=== PATIENT | male | born 1950 | race Caucasian/White ===

== ENCOUNTER 2016-06-25 16:22 | Emergency (ER) | payer BC ==
--- NOTE | 2016-06-25 17:05 | ED ---
General Adult HPI - General Chief complaint: Chest Pain Stated complaint: Chest Pain/SOB Time Seen by Provider: 06/25/16 16:35 Source: patient, RN notes reviewed Mode of arrival: wheelchair Limitations: no limitations - History of Present Illness Initial comments: This is a 66-year-old male who presents emergency Department complaining that over the last couple of months she's had episodes of shortness of breath and a weird sensation in his chest. Patient states she's also looked at his apple watch which takes his pulse during some of these episodes and his heart rate is gone up anywhere between 120 and 165 on multiple occasions. Patient states currently he is having symptoms. Patient states yesterday when he started to exercise at first he was very short of breath and all of a sudden when he kept going the shortness of breath resolved and he felt back to his baseline. Patient denies any recent fevers chills or cough. Patient denies any headache patient denies numbness weakness. Patient denies any lightheadedness dizziness or near syncopal episode. Patient denies abdominal pain patient denies nausea vomiting or diarrhea. - Related Data Home Medications Medication Instructions Recorded Confirmed Ranitidine HCl [Zantac] 150 mg PO QAM 03/02/14 06/25/16 Aspirin EC [Ecotrin] 81 mg PO QAM 06/25/16 06/25/16 Multivitamins, Thera [Multivitamin] 1 tab PO DAILY 06/25/16 06/25/16 Tamsulosin HCl [Flomax] 0.4 mg PO HS 06/25/16 06/25/16 Warfarin [Coumadin] 5 mg PO MOTU 06/25/16 06/25/16 Warfarin [Coumadin] 7.5 mg PO SUWETHFRSA 06/25/16 06/25/16 Allergies Allergy/AdvReac Type Severity Reaction Status Date / Time No Known Allergies Allergy Verified 06/25/16 16:58 Review of Systems ROS Statement: Those systems with pertinent positive or pertinent negative responses have been documented in the HPI. ROS Other: All systems not noted in ROS Statement are negative. Past Medical History Past Medical History: Deep Vein Thrombosis (DVT), Pulmonary Embolus (PE) Additional Past Medical History / Comment(s): seasonal ALLERGIES History of Any Multi-Drug Resistant Organisms: None Reported Additional Past Surgical History / Comment(s): CYSTS REMOVED FROM NECK Past Psychological History: No Psychological Hx Reported Smoking Status: Former smoker Past Alcohol Use History: None Reported Past Drug Use History: None Reported General Exam - General Exam Comments Initial Comments: GENERAL: Patient is well-developed and well-nourished. Patient is nontoxic and well- hydrated and is in no acute distress. ENT: Neck is soft and supple. No significant lymphadenopathy is noted. Oropharynx is clear. Moist mucous membranes. Neck has full range of motion without eliciting any pain. EYES: The sclera were anicteric and conjunctiva were pink and moist. Extraocular movements were intact and pupils were equal round and reactive to light. Eyelids were unremarkable. PULMONARY: Unlabored respirations. Good breath sounds bilaterally. No audible rales rhonchi or wheezing was noted. CARDIOVASCULAR: There is a regular rate and rhythm without any murmurs gallops or rubs. Femoral pulses are equal bilaterally ABDOMEN: Soft and nontender with normal bowel sounds. No palpable organomegaly was noted. There is no palpable pulsatile mass. SKIN: Skin is clear with no lesions or rashes and otherwise unremarkable. NEUROLOGIC: Patient is alert and oriented x3. Cranial nerves II through XII are grossly intact. Motor and sensory are also intact. Normal speech, volume and content. Symmetrical smile. MUSCULOSKELETAL: Normal extremities with adequate strength and full range of motion. No lower extremity swelling or edema. No calf tenderness. LYMPHATICS: No significant lymphadenopathy is noted PSYCHIATRIC: Normal psychiatric evaluation. Normal interpersonal interactions appears functionally intact in deals appropriately with others. No signs of depression. No signs of anxiety. Limitations: no limitations Course Vital Signs 06/25/16 06/25/16 16:32 18:07 Temperature 97.7 F Pulse Rate 61 54 L Respiratory 18 17 Rate Blood Pressure 114/62 100/60 O2 Sat by Pulse 98 99 Oximetry Medical Decision Making - Medical Decision Making EKG shows sinus bradycardia 56 bpm [place] interval is 170 QRS is 86 QT interval 432 QTC is 416 per patient's EKG shows no ST segment elevation or depression or T- wave abdomen is noted. Chest x-ray showed no acute abnormality. I discussed the results of his tests with the patient and because he had multiple episodes of racing heart rate when he was having the shortness of breath and weird feeling in his chest I believed to be some sort of tachyarrhythmia and felt as though he could follow-up as an outpatient. Patient was very comfortable with this and wanted to go home and stated he would follow-up Dr. Hinojosa for stress test and a Holter or event monitor - Lab Data Result diagrams: 06/25/16 16:45 06/25/16 16:45 Lab Results 06/25/16 06/25/16 06/25/16 Range/Units 16:45 16:45 16:45 WBC 4.7 (3.8-10.6) k/uL RBC 4.52 (4.30-5.90) m/uL Hgb 14.5 (13.0-17.5) gm/dL Hct 43.8 (39.0-53.0) % MCV 96.7 (80.0-100.0) fL MCH 32.1 (25.0-35.0) pg MCHC 33.2 (31.0-37.0) g/dL RDW 13.0 (11.5-15.5) % Plt Count 177 (150-450) k/uL Neutrophils % 49 % Lymphocytes % 33 % Monocytes % 9 % Eosinophils % 4 % Basophils % 1 % Neutrophils # 2.3 (1.3-7.7) k/uL Lymphocytes # 1.6 (1.0-4.8) k/uL Monocytes # 0.4 (0-1.0) k/uL Eosinophils # 0.2 (0-0.7) k/uL Basophils # 0.0 (0-0.2) k/uL PT (9.0-12.0) sec INR (<1.1) APTT (22.0-30.0) sec Sodium 141 (137-145) mmol/L Potassium 4.5 (3.5-5.1) mmol/L Chloride 104 (98-107) mmol/L Carbon Dioxide 29 (22-30) mmol/L Anion Gap 8 mmol/L BUN 22 H (9-20) mg/dL Creatinine 0.94 (0.66-1.25) mg/dL Est GFR (MDRD) Af Amer >60 (>60 ml/min/1.73 sqM) Est GFR (MDRD) Non-Af >60 (>60 ml/min/1.73 sqM) Glucose 85 (74-99) mg/dL Calcium 9.1 (8.4-10.2) mg/dL Magnesium 1.9 (1.6-2.3) mg/dL Total Bilirubin 0.7 (0.2-1.3) mg/dL AST 43 (17-59) U/L ALT 52 (21-72) U/L Alkaline Phosphatase 58 (38-126) U/L Total Creatine Kinase 550 H (55-170) U/L CK-MB (CK-2) 8.5 H* (0.0-2.4) ng/mL CK-MB (CK-2) Rel Index 1.5 Troponin I <0.012 (0.000-0.034) ng/mL Total Protein 6.8 (6.3-8.2) g/dL Albumin 4.1 (3.5-5.0) g/dL 06/25/16 Range/Units 16:45 WBC (3.8-10.6) k/uL RBC (4.30-5.90) m/uL Hgb (13.0-17.5) gm/dL Hct (39.0-53.0) % MCV (80.0-100.0) fL MCH (25.0-35.0) pg MCHC (31.0-37.0) g/dL RDW (11.5-15.5) % Plt Count (150-450) k/uL Neutrophils % % Lymphocytes % % Monocytes % % Eosinophils % % Basophils % % Neutrophils # (1.3-7.7) k/uL Lymphocytes # (1.0-4.8) k/uL Monocytes # (0-1.0) k/uL Eosinophils # (0-0.7) k/uL Basophils # (0-0.2) k/uL PT 20.3 H (9.0-12.0) sec INR 2.1 (<1.1) APTT 28.0 (22.0-30.0) sec Sodium (137-145) mmol/L Potassium (3.5-5.1) mmol/L Chloride (98-107) mmol/L Carbon Dioxide (22-30) mmol/L Anion Gap mmol/L BUN (9-20) mg/dL Creatinine (0.66-1.25) mg/dL Est GFR (MDRD) Af Amer (>60 ml/min/1.73 sqM) Est GFR (MDRD) Non-Af (>60 ml/min/1.73 sqM) Glucose (74-99) mg/dL Calcium (8.4-10.2) mg/dL Magnesium (1.6-2.3) mg/dL Total Bilirubin (0.2-1.3) mg/dL AST (17-59) U/L ALT (21-72) U/L Alkaline Phosphatase (38-126) U/L Total Creatine Kinase (55-170) U/L CK-MB (CK-2) (0.0-2.4) ng/mL CK-MB (CK-2) Rel Index Troponin I (0.000-0.034) ng/mL Total Protein (6.3-8.2) g/dL Albumin (3.5-5.0) g/dL Disposition Clinical Impression: Tachyarrhythmia Disposition: HOME SELF-CARE Condition: Good Instructions: Tachycardia (ED) Additional Instructions: Patient should follow-up with his PMD for a Holter or event monitor. Patient should not participate any strenuous activities until that time. Patient should return if there is any worsening or new symptoms. Referrals: Manoj Hinojosa DO [Primary Care Provider] - 1-2 days Time of Disposition: 18:02
[2016-06-25 17:09] LABS: Basophils % (A) 1 %; CH 32.1; CHCM 33.4; Eosinophils # (A) 0.2 k/uL (0-0.7); Eosinophils % (A) 4 %; HCT 43.8 % (39.0-53.0); HDW 2.26; HGB 14.5 gm/dL (13.0-17.5); Luc # (Auto) 0.19; Luc % (Auto) 4; Lymphocytes # (A) 1.6 k/uL (1.0-4.8); Lymphocytes % (A) 33 %; MCH 32.1 pg (25.0-35.0); MCHC 33.2 g/dL (31.0-37.0); MCV 96.7 fL (80.0-100.0); Mean Platelet Volume 7.7; Monocytes # (A) 0.4 k/uL (0-1.0); Monocytes % (A) 9 %; Neutrophils # (A) 2.3 k/uL (1.3-7.7); Neutrophils % (A) 49 %; RBC 4.52 m/uL (4.30-5.90); WBC 4.7 k/uL (3.8-10.6); WBC (Perox) 4.67
[2016-06-25 17:19] LABS: INR 2.1 (<1.1); Prothrombin Time 20.3 sec (9.0-12.0)
[2016-06-25 17:20] LABS: ALT 52 U/L (21-72); AST 43 U/L (17-59); Alkaline Phosphatase 58 U/L (38-126); Anion Gap 8 mmol/L; Blood Urea Nitrogen 22 mg/dL (9-20); Calcium 9.1 mg/dL (8.4-10.2); Carbon Dioxide 29 mmol/L (22-30); Chloride 104 mmol/L (98-107); Glucose 85 mg/dL (74-99); Magnesium 1.9 mg/dL (1.6-2.3); Non-African American GFR(MDRD) >60 (>60 ml/min/1.73 sqM); Potassium 4.5 mmol/L (3.5-5.1); Sodium 141 mmol/L (137-145); Total Bilirubin 0.7 mg/dL (0.2-1.3); Total Protein 6.8 g/dL (6.3-8.2)
[2016-06-25 17:42] LABS: Creatine Kinase 550 U/L (55-170)
[2016-06-25 17:55] LABS: Troponin I <0.012 ng/mL (0.000-0.034)
[2016-06-25 17:59] LABS: Creatine Kinase MB 8.5 ng/mL (0.0-2.4)
--- NOTE | 2016-06-25 18:03 | XR ---
EXAMINATION TYPE: XR chest 2V DATE OF EXAM: 06/25/2016 5:19 PM COMPARISON: March 18, 2011 chest radiograph HISTORY: Chest pain with dyspnea TECHNIQUE: Frontal and lateral views of the chest are obtained. FINDINGS: Cardiac silhouette is normal. Mediastinal silhouette and bones and soft tissues are negative. The lungs appear clear bilaterally given the relatively underpenetrated technique of this radiographi c series when compared to the prior radiographs. The pleural spaces are negative. No abnormal gas or fluid collections. IMPRESSION: NO ACUTE PROCESS.
[2016-06-25 18:09] VITALS: BP 100/60; PULSE 54; RESP 17
[2016-06-25 18:20] VITALS: TEMP 97.8
== END 2016-06-25 18:25 | disposition home or self-care (01) ==
LOC: EC 16:22
DX: R00.0 Tachycardia, unspecified (principal); R07.9 Chest pain, unspecified; R06.02 Shortness of breath; Z86.718 Personal history of other venous thrombosis and embolism; Z87.891 Personal history of nicotine dependence; Z79.82 Long term (current) use of aspirin; Z79.899 Other long term (current) drug therapy; Z79.01 Long term (current) use of anticoagulants
CPT/HCPCS: 36415; 71020; 80053; 82550; 82553; 83735; 84484; 85025; 85610; 85730; 93005; 99285

== ENCOUNTER → 2016-07-16 | Outpatient (CLI) | payer BC ==
--- NOTE | 2016-07-16 15:43 | US ---
EXAMINATION TYPE: US carotid duplex BILAT DATE OF EXAM: 07/16/2016 3:27 PM COMPARISON: Prior carotid ultrasound December 10, 2010 CLINICAL HISTORY: Syncope R55. Racing heart 1 day fit band said 120 heart rate pt felt faint at that time prior was only positional of feeling faint EXAM MEASUREMENTS: RIGHT: Peak Systolic Velocity (PSV) cm/sec ----- Right CCA: 143.8 ----- Right ICA: 77.9 ----- Right ECA: 69.8 ICA/CCA ratio: 1.0 RIGHT: End Diastole cm/sec ----- Right CCA: 30.8 ----- Right ICA: 31.7 ----- Right ECA: 5.6 LEFT: Peak Systolic Velocity (PSV) cm/sec ----- Left CCA: 106.1 ----- Left ICA: 87.2 ----- Left ECA: 79.8 ICA/CCA ratio: 1.0 LEFT: End Diastole cm/sec ----- Left CCA: 30.1 ----- Left ICA: 29.5 ----- Left ECA: 12.4 VERTEBRALS (direction of flow): Right Vertebral: Antegrade Left Vertebral: Antegrade TECHNOLOGIST IMPRESSION: No elevated velocities, irregular heart beat No significant focal plaque is seen in the carotid bulb level bilaterally. Velocity measurements and ratios in visualized portion of both internal carotid arteries is within normal limits. IMPRESSION: No hemodynamic significant stenosis is seen in either internal carotid artery. Note is m jeanna of cardiac arrhythmia noted during real-time scanning. Consider further workup based on clinical correlation.
== END | disposition home or self-care (01) ==
LOC: RADUSWWP 14:48
PROVIDERS: ATTEND Family Medicine
DX: I49.9 Cardiac arrhythmia, unspecified (principal); R55 Syncope and collapse
CPT/HCPCS: 93880

== ENCOUNTER → 2016-08-28 | Outpatient (CLI) | payer BC | END | disposition home or self-care (01) | LOC: LABWHC1 12:48 | PROVIDERS: ATTEND Internal Medicine Clinical Cardiac Electrophysiology | DX: I47.1 Supraventricular tachycardia (principal); R42 Dizziness and giddiness | CPT/HCPCS: 36415; 84439; 84443 ==

== ENCOUNTER 2018-02-04 11:58 | Emergency (ER) | payer BC ==
[2018-02-04] MEDS ORDERED: SODIUM CHLORIDE 0.9% 1,000 ML IV STA (12:39)
[2018-02-04] MEDS ORDERED: MECLIZINE 12.5 MG TAB PO STA (12:41)
--- NOTE | 2018-02-04 12:45 | ED ---
General Adult HPI - General Chief complaint: Dizziness Stated complaint: Vertigo Time Seen by Provider: 02/04/18 12:17 Source: patient, RN notes reviewed Mode of arrival: EMS Limitations: no limitations - History of Present Illness Initial comments: 67-year-old male with history of DVT/PE currently on Coumadin presents to the emergency department for a chief complaint of dizziness 3 hours. Patient states he was in the shower this morning around 9 AM when he hit his left ear on something. Patient states that since then he has had increasing dizziness. He denies tinnitus, decreased hearing, or pain in the ear at this time. Patient states the room is spinning around him and he also feels somewhat lightheaded. Patient states he was very diaphoretic and felt very warm. Patient denies vomiting but does state he is nauseous. Patient denies any weakness. Patient states that at that time he felt a sharp pain in his left ear. Patient states that he was driving here when he had to go to the bathroom and states he "stumbled" to the restroom and then called an ambulance to take him here. Patient denies any headache. Patient has no other complaints at this time including shortness of breath, chest pain, abdominal pain, nausea or vomiting, headache, or visual changes. - Related Data Home Medications Medication Instructions Recorded Confirmed Aspirin EC [Ecotrin] 81 mg PO HS 06/25/16 02/04/18 Multivitamins, Thera [Multivitamin] 1 tab PO DAILY 06/25/16 02/04/18 Warfarin [Coumadin] 5 mg PO MOTUWE 06/25/16 02/04/18 Warfarin [Coumadin] 7.5 mg PO SUTHFRSA 06/25/16 02/04/18 Cholecalciferol [Vitamin D3] 1,000 unit PO DAILY 02/04/18 02/04/18 Montelukast [Singulair] 10 mg PO DAILY 02/04/18 02/04/18 [place]-3 Fatty Acids/Fish Oil [Fish 1 cap PO DAILY 02/04/18 02/04/18 Oil 1,000 mg Softgel] Ubidecarenone [Co Q-10] 100 mg PO DAILY 02/04/18 02/04/18 Previous Rx's Medication Instructions Recorded Amoxicillin/Potassium Clav 1 tab PO Q12HR #20 tab 02/04/18 [Augmentin 875-125 Tablet] Meclizine [Antivert] 25 mg PO TID PRN #30 tab 02/04/18 Allergies Allergy/AdvReac Type Severity Reaction Status Date / Time No Known Allergies Allergy Verified 02/04/18 12:38 Review of Systems ROS Statement: Those systems with pertinent positive or pertinent negative responses have been documented in the HPI. ROS Other: All systems not noted in ROS Statement are negative. Past Medical History Past Medical History: Deep Vein Thrombosis (DVT), Pulmonary Embolus (PE) Additional Past Medical History / Comment(s): seasonal ALLERGIES History of Any Multi-Drug Resistant Organisms: None Reported Additional Past Surgical History / Comment(s): CYSTS REMOVED FROM NECK Past Psychological History: No Psychological Hx Reported Smoking Status: Former smoker Past Alcohol Use History: None Reported Past Drug Use History: None Reported General Exam Limitations: no limitations General appearance: alert, in no apparent distress (Patient laying in bed, alert and well-appearing, nondiaphoretic at this time) Head exam: Present: atraumatic, normocephalic, normal inspection Eye exam: Present: normal appearance, PERRL, EOMI, nystagmus (Fatigable horizontal nystagmus to the left). Absent: scleral icterus, conjunctival injection, periorbital swelling ENT exam: Present: normal exam, normal oropharynx, mucous membranes moist, TM's normal bilaterally (non buldging, non erythematous), normal external ear exam Neck exam: Present: normal inspection, full ROM. Absent: tenderness, meningismus, lymphadenopathy Respiratory exam: Present: normal lung sounds bilaterally. Absent: respiratory distress, wheezes, rales, rhonchi, stridor Cardiovascular Exam: Present: regular rate, normal rhythm, normal heart sounds. Absent: systolic murmur, diastolic murmur, rubs, gallop, clicks GI/Abdominal exam: Present: soft, normal bowel sounds. Absent: distended, tenderness, guarding, rebound, rigid Extremities exam: Present: full ROM (moving all extremities) Neurological exam: Present: alert, oriented X3, CN II-XII intact Expanded Patient oriented to: Present: person, place, time Speech: Present: fluid speech Cranial nerves: EOM's Intact: Normal, Tongue Deviation: Normal, Nystagmus: Normal, Facial Sensation: Normal Motor strength exam: RUE: 5, LUE: 5 Psychiatric exam: Present: normal affect, normal mood Course Vital Signs 02/04/18 02/04/18 12:01 14:36 Temperature 97.5 F L Pulse Rate 65 68 Respiratory 22 18 Rate Blood Pressure 128/59 111/69 O2 Sat by Pulse 95 98 Oximetry EKG Findings - EKG Comments: EKG Findings:: Sinus bradycardia, ventricular rate 55, OK interval 194, QRS duration 1:30, right bundle branch, no evidence of ST elevation or depression Medical Decision Making - Medical Decision Making 67-year-old male presents to the emergency department for a chief complaint of dizziness after hitting left ear in the shower. Patient is on Coumadin due to history of DVTs. On exam no focal neuro deficits. GCS 15 Patient is alert and oriented. Positive [place]-Hallpike maneuver on exam. CBC and CMP unremarkable. Troponin less than 0.012. Total creatine kinase 620 and CK-MB 10.8. CK-MB index 1.7 which demonstrates it's not likely to be a cardiac cause. Patient will follow up for these laboratory abnormalities and have repeat labs drawn with primary. CT of the brain was negative for intracranial hemorrhage. However patient does have acute left maxillary sinusitis. Patient was given Antivert in the emergency department which helped to improve his symptoms significantly. Discussed with patient that this could be related to sinusitis as well as to vertigo. Patient does admit to a history of vertigo. I did prescribe the patient Antivert as well as Augmentin. Discussed taking the Augmentin if symptoms worsen or patient develops fevers or chills or facial pressure. Discussed using a Flonase and Claritin [id number] as well for sinusitis as that could be causing symptoms of dizziness. Discussed following up with primary care in 1-2 days for this and returning to the emergency department if patient has any worsening symptoms. Discussed case in detail with Dr. Burgess. - Lab Data Result diagrams: 02/04/18 12:52 02/04/18 12:52 Lab Results 02/04/18 02/04/18 02/04/18 Range/Units 12:52 12:52 12:52 WBC 8.1 (3.8-10.6) k/uL RBC 4.62 (4.30-5.90) m/uL Hgb 14.2 (13.0-17.5) gm/dL Hct 44.1 (39.0-53.0) % MCV 95.5 (80.0-100.0) fL MCH 30.8 (25.0-35.0) pg MCHC 32.3 (31.0-37.0) g/dL RDW 13.0 (11.5-15.5) % Plt Count 170 (150-450) k/uL Neutrophils % 79 % Lymphocytes % 13 % Monocytes % 6 % Eosinophils % 1 % Basophils % 0 % Neutrophils # 6.4 (1.3-7.7) k/uL Lymphocytes # 1.0 (1.0-4.8) k/uL Monocytes # 0.5 (0-1.0) k/uL Eosinophils # 0.1 (0-0.7) k/uL Basophils # 0.0 (0-0.2) k/uL PT (9.0-12.0) sec INR (<1.2) APTT (22.0-30.0) sec Sodium 139 (137-145) mmol/L Potassium 4.8 (3.5-5.1) mmol/L Chloride 107 (98-107) mmol/L Carbon Dioxide 26 (22-30) mmol/L Anion Gap 6 mmol/L BUN 20 (9-20) mg/dL Creatinine 0.77 (0.66-1.25) mg/dL Est GFR (CKD-EPI)AfAm >90 (>60 ml/min/1.73 sqM) Est GFR (CKD-EPI)NonAf >90 (>60 ml/min/1.73 sqM) Glucose 125 H (74-99) mg/dL Calcium 9.1 (8.4-10.2) mg/dL Magnesium 1.8 (1.6-2.3) mg/dL Total Bilirubin 0.6 (0.2-1.3) mg/dL AST 49 (17-59) U/L ALT 45 (21-72) U/L Alkaline Phosphatase 53 (38-126) U/L Total Creatine Kinase 620 H (55-170) U/L CK-MB (CK-2) 10.8 H (0.0-2.4) ng/mL CK-MB (CK-2) Rel Index 1.7 Troponin I <0.012 (0.000-0.034) ng/mL Total Protein 6.4 (6.3-8.2) g/dL Albumin 3.9 (3.5-5.0) g/dL 02/04/18 Range/Units 12:52 WBC (3.8-10.6) k/uL RBC (4.30-5.90) m/uL Hgb (13.0-17.5) gm/dL Hct (39.0-53.0) % MCV (80.0-100.0) fL MCH (25.0-35.0) pg MCHC (31.0-37.0) g/dL RDW (11.5-15.5) % Plt Count (150-450) k/uL Neutrophils % % Lymphocytes % % Monocytes % % Eosinophils % % Basophils % % Neutrophils # (1.3-7.7) k/uL Lymphocytes # (1.0-4.8) k/uL Monocytes # (0-1.0) k/uL Eosinophils # (0-0.7) k/uL Basophils # (0-0.2) k/uL PT 17.3 H (9.0-12.0) sec INR 1.9 H (<1.2) APTT 23.5 (22.0-30.0) sec Sodium (137-145) mmol/L Potassium (3.5-5.1) mmol/L Chloride (98-107) mmol/L Carbon Dioxide (22-30) mmol/L Anion Gap mmol/L BUN (9-20) mg/dL Creatinine (0.66-1.25) mg/dL Est GFR (CKD-EPI)AfAm (>60 ml/min/1.73 sqM) Est GFR (CKD-EPI)NonAf (>60 ml/min/1.73 sqM) Glucose (74-99) mg/dL Calcium (8.4-10.2) mg/dL Magnesium (1.6-2.3) mg/dL Total Bilirubin (0.2-1.3) mg/dL AST (17-59) U/L ALT (21-72) U/L Alkaline Phosphatase (38-126) U/L Total Creatine Kinase (55-170) U/L CK-MB (CK-2) (0.0-2.4) ng/mL CK-MB (CK-2) Rel Index Troponin I (0.000-0.034) ng/mL Total Protein (6.3-8.2) g/dL Albumin (3.5-5.0) g/dL - EKG Data -: EKG Interpreted by Me (and Dr Burgess) When compared to previous EKG there are: changes noted (Further progressing right bundle-branch block) Disposition Clinical Impression: Dizziness Disposition: HOME SELF-CARE Condition: Good Instructions: Dizziness (ED) Additional Instructions: Please take Antivert as needed. Take antibiotic if he develops symptoms of sinusitis. Please have total creatine kinase and CK-MB rechecked by primary care. Return to the emergency department if you develop any worsening symptoms Prescriptions: Amoxicillin/Potassium Clav [Augmentin 875-125 Tablet] 1 tab PO Q12HR #20 tab Meclizine [Antivert] 25 mg PO TID PRN #30 tab PRN Reason: dizzy Is patient prescribed a controlled substance at d/c from ED?: No Referrals: Manoj Hinojosa DO [Primary Care Provider] - 1-2 days Time of Disposition: 15:09
[2018-02-04 13:34] LABS: Basophils % (A) 0 %; Eosinophils # (A) 0.1 k/uL (0-0.7); Eosinophils % (A) 1 %; HCT 44.1 % (39.0-53.0); HGB 14.2 gm/dL (13.0-17.5); Lymphocytes % (A) 13 %; MCH 30.8 pg (25.0-35.0); MCHC 32.3 g/dL (31.0-37.0); MCV 95.5 fL (80.0-100.0); Mean Platelet Volume 6.8; Monocytes # (A) 0.5 k/uL (0-1.0); Monocytes % (A) 6 %; Neutrophils # (A) 6.4 k/uL (1.3-7.7); Neutrophils % (A) 79 %; Platelet Count 170 k/uL (150-450); RBC 4.62 m/uL (4.30-5.90); WBC 8.1 k/uL (3.8-10.6)
--- NOTE | 2018-02-04 13:44 | CT ---
EXAMINATION TYPE: CT brain wo con DATE OF EXAM: 02/04/2018 COMPARISON: 03/18/2011 INDICATION: SHARP PAIN LT JAW/FACE. DIZZINESS THIS AM DLP: 1168 mGycm, Automated exposure control for dose reduction was used. CONTRAST: None CT of the brain is performed utilizing 3 mm thick sections through the posterior fossa and 3 mm thick sections through the remaining calvarium. Study is performed within 24 hours of arrival to the hosp [facility]. No abnormal hyperdensity is present to suggest an acute intracranial hemorrhage. No mass lesion is evident. No acute infarcts are evident. Ventricles and sulci are appropriate for the patient age. Tiny air-fluid levels within the left maxillary sinus. Correlate for acute left maxillary sinusitis. IMPRESSIONS: 1. No acute intracranial process. 2. Correlate for acute left maxillary sinusitis.
[2018-02-04 13:45] LABS: ALT 45 U/L (21-72); AST 49 U/L (17-59); Albumin 3.9 g/dL (3.5-5.0); Alkaline Phosphatase 53 U/L (38-126); Anion Gap 6 mmol/L; Blood Urea Nitrogen 20 mg/dL (9-20); Calcium 9.1 mg/dL (8.4-10.2); Carbon Dioxide 26 mmol/L (22-30); Chloride 107 mmol/L (98-107); Glucose 125 mg/dL (74-99); Magnesium 1.8 mg/dL (1.6-2.3); Potassium 4.8 mmol/L (3.5-5.1); Sodium 139 mmol/L (137-145); Total Bilirubin 0.6 mg/dL (0.2-1.3); Total Protein 6.4 g/dL (6.3-8.2)
[2018-02-04 13:59] LABS: Creatine Kinase 620 U/L (55-170)
[2018-02-04 14:08] LABS: INR 1.9 (<1.2); Partial Thromboplastin Time 23.5 sec (22.0-30.0); Prothrombin Time 17.3 sec (9.0-12.0)
[2018-02-04 14:12] LABS: Creatine Kinase MB 10.8 ng/mL (0.0-2.4); Troponin I <0.012 ng/mL (0.000-0.034)
[2018-02-04 14:38] VITALS: BP 111/69; PULSE 68; RESP 18; TEMP 97.5
== END 2018-02-04 15:29 | disposition home or self-care (01) ==
LOC: EC 11:58
DX: R42 Dizziness and giddiness (principal); R11.0 Nausea; J01.00 Acute maxillary sinusitis, unspecified; Z86.718 Personal history of other venous thrombosis and embolism; Z86.711 Personal history of pulmonary embolism; Z87.891 Personal history of nicotine dependence; Z79.82 Long term (current) use of aspirin; Z79.01 Long term (current) use of anticoagulants; Z79.899 Other long term (current) drug therapy
CPT/HCPCS: 36415; 70450; 80053; 82550; 82553; 83735; 84484; 85025; 85610; 85730; 93005; 96360; 99285

== ENCOUNTER 2021-11-21 13:57 | Emergency (ER) | payer BC, MEDICARE ==
[2021-11-21 14:33] LABS: Basophils # (A) 0.1 k/uL (0-0.2); Basophils % (A) 1 %; Eosinophils # (A) 0.3 k/uL (0-0.7); Eosinophils % (A) 4 %; HCT 44.1 % (39.0-53.0); HGB 14.3 gm/dL (13.0-17.5); Lymphocytes # (A) 2.4 k/uL (1.0-4.8); Lymphocytes % (A) 33 %; MCH 31.5 pg (25.0-35.0); MCHC 32.4 g/dL (31.0-37.0); Mean Platelet Volume 7.5; Monocytes # (A) 0.6 k/uL (0-1.0); Monocytes % (A) 9 %; Neutrophils # (A) 3.6 k/uL (1.3-7.7); Neutrophils % (A) 50 %; Platelet Count 161 k/uL (150-450); RBC 4.55 m/uL (4.30-5.90); RDW 12.9 % (11.5-15.5); WBC 7.2 k/uL (3.8-10.6)
[2021-11-21 15:10] LABS: INR 1.8 (<1.2); Partial Thromboplastin Time 25.1 sec (22.0-30.0); Prothrombin Time 17.9 sec (9.0-12.0)
[2021-11-21 15:15] LABS: ALT 29 U/L (4-49); AST 43 U/L (17-59); African American GFR (CKD) >90 (>60 ml/min/1.73 sqM); Albumin 4.2 g/dL (3.5-5.0); Alkaline Phosphatase 59 U/L (38-126); Anion Gap 6 mmol/L; Blood Urea Nitrogen 24 mg/dL (9-20); Calcium 9.2 mg/dL (8.4-10.2); Carbon Dioxide 24 mmol/L (22-30); Chloride 107 mmol/L (98-107); Glucose 82 mg/dL (74-99); Non-African American GFR(CKD) 86 (>60 ml/min/1.73 sqM); Potassium 4.2 mmol/L (3.5-5.1); Sodium 137 mmol/L (137-145); Total Bilirubin 0.6 mg/dL (0.2-1.3); Total Protein 6.9 g/dL (6.3-8.2)
[2021-11-21] MEDS ORDERED: MECLIZINE 12.5 MG TAB PO STA (16:09)
[2021-11-21] MEDS ORDERED: SODIUM CHLORIDE 0.9% 1,000 ML IV STA (16:09)
--- NOTE | 2021-11-21 16:20 | ED ---
General Adult HPI - General Chief complaint: Dizziness Stated complaint: Dizziness Time Seen by Provider: 11/21/21 15:52 Source: patient, RN notes reviewed, old records reviewed Mode of arrival: ambulatory Limitations: no limitations - History of Present Illness Initial comments: Patient is a 71-year-old male with past medical history remarkable for prior DVTs on Coumadin who presents emergency Department complaining of a vertigo sensation. States it started approximately 3 or 4 hours ago. Was preceded by atypical, tension-like headache. States the headache is resolved but the symptoms persist. No history of brain aneurysms. Intermittently has expressed episodes of vertigo in the past, but he seemed to be spaced out by multiple years. Believes his last case of vertigo may have been 3-5 years ago. Is not typically a medication for at home. Describes it as a room spinning sensation with nausea. Patient has been able to ambulate but feels unsteady on his feet. Denies any other symptoms at this time, including hematuria, dysuria. Denies any chest pain, shortness breath. Denies any abdominal pain. His no other acute complaint at this time. Presents for further evaluation of this time. Initial labs were obtained in triage. - Related Data Home Medications Medication Instructions Recorded Confirmed Multivitamins, Thera [Multivitamin] 1 tab PO DAILY 06/25/16 11/21/21 Wilson-3 Fatty Acids/Fish Oil [Fish 1 cap PO DAILY 02/04/18 11/21/21 Oil 1,000 mg Softgel] Cholecalciferol [Vitamin D3 (25 25 mcg PO DAILY 11/21/21 11/21/21 Mcg = 1000 Iu)] Glucosamine/Chondr [place]o A Sod [Osteo 1 tab PO DAILY 11/21/21 11/21/21 Bi-Flex Caplet] Pravastatin Sodium [Pravachol] 40 mg PO HS 11/21/21 11/21/21 Turmeric Root Extract [Turmeric] 500 mg PO DAILY 11/21/21 11/21/21 Warfarin Sodium [Jantoven] 5 mg PO MOTUWE 11/21/21 11/21/21 Warfarin Sodium [Jantoven] 7.5 mg PO SUTHFRSA 11/21/21 11/21/21 Zinc 50 mg PO DAILY 11/21/21 11/21/21 carvediloL [Coreg] 3.125 mg PO BID 11/21/21 11/21/21 lisinopriL [Zestril] 2.5 mg PO HS 11/21/21 11/21/21 Previous Rx's Medication Instructions Recorded Meclizine [Antivert] 25 mg PO BID PRN 14 Days #28 tab 11/21/21 Allergies Allergy/AdvReac Type Severity Reaction Status Date / Time No Known Allergies Allergy Verified 11/21/21 17:33 Review of Systems ROS Statement: Those systems with pertinent positive or pertinent negative responses have been documented in the HPI. Review of Systems: CONST: Denies fever EYES: Denies blurry vision ENT: Denies nasal congestion C/V: Denies Chest pain RESP: Denies shortness of breath GI: Denies abdominal pain : Denies dysuria SKIN: Denies rash. MSK: Denies joint pain. NEURO: Endorses dizziness ROS Other: All systems not noted in ROS Statement are negative. Past Medical History Past Medical History: Deep Vein Thrombosis (DVT), Pulmonary Embolus (PE) Additional Past Medical History / Comment(s): seasonal ALLERGIES History of Any Multi-Drug Resistant Organisms: None Reported Additional Past Surgical History / Comment(s): CYSTS REMOVED FROM NECK Past Psychological History: No Psychological Hx Reported Smoking Status: Never smoker Past Alcohol Use History: None Reported Past Drug Use History: None Reported General Exam - General Exam Comments Initial Comments: General: Appears in no acute distress. HEAD: Normal with no signs of head trauma. EYES: PERRLA, EOMI. Pupils are 3 mm and equal bilaterally. ENT: Hearing grossly intact, normal oropharynx. Bilateral tympanic membranes are within normal limits. RESPIRATORY: Clear breath sounds bilaterally. No wheezes, rales, or rhonchi. C/V: Regular rate and rhythm. S1 and S2 auscultated, no edema, peripheral pulses 2+ and intact throughout ABD: Abd is soft, nontender, nondistended EXT: Normal range of motion, no obvious deformity SKIN: No rashes or lesions observed on exposed skin. NEURO: Alert and oriented x 4. Cranial nerves II-XII intact. No focal sensory or strength deficits. NIH of 0. GCS of 15. Cerebellar function is intact and normal as evident by absence of dysdiadochokinesia, normal finger to nose testing, normal zudo-om-piro testing. Patient is able to ambulate. Limitations: no limitations Course Vital Signs 11/21/21 11/21/21 13:59 19:18 Temperature 98.2 F 97.0 F L Pulse Rate 60 56 L Respiratory 20 18 Rate Blood Pressure 143/86 107/73 O2 Sat by Pulse 98 96 Oximetry Medical Decision Making - Medical Decision Making Based on the patient's presentation and physical exam, I'm concerned for suspected vertigo. Does have a history of vertigo, however is spaced out. States he did have a headache prior to onset of vertigo. Is on blood thinners. Denies trauma. Cannot rule out intracranial etiology at this time as his vertigo seems intermittent and is not regular for the patient. He'll be symptomatically treated with 1 L fluid bolus and Antivert. However I did recommend that we obtain CT imaging of the brain as well as CT angiogram to rule out intracranial injury such as subarachnoid hemorrhage particularly with the onset of vertigo after headache. He was in agreement this plan. Vital signs otherwise within normal limits. Neuro exam is otherwise unremarkable. Laboratory studies were obtained while the patient remained in triage. There were remarkable for somewhat subtherapeutic INR 1.8. Remainder the labs are unremarkable including a undetectable troponin. EKG showed no signs of acute ischemia.CT imaging the brain is unremarkable. On reevaluation, patient is feeling improved. In fluids without difficulty. For the symptoms are gone. I updated him on the results of his negative workup. Did update him on his mildly subtherapeutic INR and recommended taking an extra dose tonight with follow-up with his PCP this week as he does not want to be admitted. He is in agreement with this plan. Strict return precautions were discussed. Will be given upper prescription for Antivert. I will provide the patient with a prescription for Antivert. I instructed the patient to follow up with their PCP in the next 1-3 days. I explained that the patient should return to the emergency department if they experience any worsening symptoms. Strict return precautions were discussed with the patient. The patient expressed understanding of these instructions. I answered all questions that the patient had. The patient was discharged home in good condition with their prescriptions and follow up information. - Lab Data Result diagrams: 11/21/21 14:01 11/21/21 14:01 Lab Results 11/21/21 11/21/21 11/21/21 Range/Units 14:01 14:01 14:01 WBC 7.2 (3.8-10.6) k/uL RBC 4.55 (4.30-5.90) m/uL Hgb 14.3 (13.0-17.5) gm/dL Hct 44.1 (39.0-53.0) % MCV 97.0 (80.0-100.0) fL MCH 31.5 (25.0-35.0) pg MCHC 32.4 (31.0-37.0) g/dL RDW 12.9 (11.5-15.5) % Plt Count 161 (150-450) k/uL MPV 7.5 Neutrophils % 50 % Lymphocytes % 33 % Monocytes % 9 % Eosinophils % 4 % Basophils % 1 % Neutrophils # 3.6 (1.3-7.7) k/uL Lymphocytes # 2.4 (1.0-4.8) k/uL Monocytes # 0.6 (0-1.0) k/uL Eosinophils # 0.3 (0-0.7) k/uL Basophils # 0.1 (0-0.2) k/uL PT 17.9 H (9.0-12.0) sec INR 1.8 H (<1.2) APTT 25.1 (22.0-30.0) sec Sodium 137 (137-145) mmol/L Potassium 4.2 (3.5-5.1) mmol/L Chloride 107 (98-107) mmol/L Carbon Dioxide 24 (22-30) mmol/L Anion Gap 6 mmol/L BUN 24 H (9-20) mg/dL Creatinine 0.91 (0.66-1.25) mg/dL Est GFR (CKD-EPI)AfAm >90 (>60 ml/min/1.73 sqM) Est GFR (CKD-EPI)NonAf 86 (>60 ml/min/1.73 sqM) Glucose 82 (74-99) mg/dL Calcium 9.2 (8.4-10.2) mg/dL Total Bilirubin 0.6 (0.2-1.3) mg/dL AST 43 (17-59) U/L ALT 29 (4-49) U/L Alkaline Phosphatase 59 (38-126) U/L Troponin I (0.000-0.034) ng/mL Total Protein 6.9 (6.3-8.2) g/dL Albumin 4.2 (3.5-5.0) g/dL 11/21/21 Range/Units 14:01 WBC (3.8-10.6) k/uL RBC (4.30-5.90) m/uL Hgb (13.0-17.5) gm/dL Hct (39.0-53.0) % MCV (80.0-100.0) fL MCH (25.0-35.0) pg MCHC (31.0-37.0) g/dL RDW (11.5-15.5) % Plt Count (150-450) k/uL MPV Neutrophils % % Lymphocytes % % Monocytes % % Eosinophils % % Basophils % % Neutrophils # (1.3-7.7) k/uL Lymphocytes # (1.0-4.8) k/uL Monocytes # (0-1.0) k/uL Eosinophils # (0-0.7) k/uL Basophils # (0-0.2) k/uL PT (9.0-12.0) sec INR (<1.2) APTT (22.0-30.0) sec Sodium (137-145) mmol/L Potassium (3.5-5.1) mmol/L Chloride (98-107) mmol/L Carbon Dioxide (22-30) mmol/L Anion Gap mmol/L BUN (9-20) mg/dL Creatinine (0.66-1.25) mg/dL Est GFR (CKD-EPI)AfAm (>60 ml/min/1.73 sqM) Est GFR (CKD-EPI)NonAf (>60 ml/min/1.73 sqM) Glucose (74-99) mg/dL Calcium (8.4-10.2) mg/dL Total Bilirubin (0.2-1.3) mg/dL AST (17-59) U/L ALT (4-49) U/L Alkaline Phosphatase (38-126) U/L Troponin I <0.012 (0.000-0.034) ng/mL Total Protein (6.3-8.2) g/dL Albumin (3.5-5.0) g/dL - EKG Data -: EKG Interpreted by Me EKG Comments: 12-lead Electrocardiogram Interpretation Note EKG was reviewed and interpreted by myself. 12-lead ECG performed at 1402 to is interpreted by me as revealing normal sinus rhythm at a rate of 56 beats per minute. [place] is normal. MD interval is 190 ms, QRS durations 132 ms, QTc is 447 ms.. There were no ST or T wave abnormalities to suggest myocardial ischemia or injury. Right bundle-branch block is present. R wave progression across the precordium was satisfactory. By my interpretation this EKG is non- diagnostic for acute ischemia. No significant change from prior EKGs. Disposition Clinical Impression: Dizzy Disposition: HOME SELF-CARE Condition: Good Instructions (If sedation given, give patient instructions): Dizziness (ED) Prescriptions: Meclizine [Antivert] 25 mg PO BID PRN 14 Days #28 tab PRN Reason: Vertigo Is patient prescribed a controlled substance at d/c from ED?: No Referrals: Manoj Hinojosa DO [Primary Care Provider] - 1-2 days Time of Disposition: 18:40
--- NOTE | 2021-11-21 17:32 | CT ---
EXAMINATION TYPE: CT brain wo con DATE OF EXAM: 11/21/2021 COMPARISON: 02/04/2018 HISTORY: vertigo CT DLP: 1111.[address] of the brain was performed. The ventricles, basal cisterns and sulci overlying the cerebral convexities demonstrate mild enlargem ent. There is no evidence for intracranial hemorrhage or sulcal effacement. There is decreased attenuation about the periventricular white matter and deep white matter of both c erebral hemispheres, compatible with chronic small vessel ischemia. Differential diagnosis does inclu de demyelination. No mass effects are seen.No midline shift. Osseous calvarium is intact. If symptoms persist consider MRI. IMPRESSION: 1. Age related atrophic and chronic small vessel ischemic change without acute intracranial process s een at this time.
--- NOTE | 2021-11-21 18:08 | CT ---
EXAMINATION TYPE: CT angio head neck DATE OF EXAM: 11/21/2021 COMPARISON: HISTORY: syncope CT DLP: 737. mGycm CONTRAST: Performed with IV Contrast, patient injected with 65 mL of Isovue 370. Combination Contrast CTA cervical carotids and [place] CTA cervical carotids with 3-D recons truction Contrast CTA of the cervical carotids was performed 3-D reconstruction imaging obtained at a separate workstation. Right carotid system: Mild plaque is seen of the right common carotid artery. There is mild plaque a lso noted at the carotid bulb and proximal ICA. No significant diameter reduction. ECA is patent. Right vertebral artery appears unremarkable. Left carotid system: Mild plaque is seen of the left common carotid artery. There is mild plaque als o noted at the carotid bulb and proximal ICA. No significant diameter reduction. ECA is patent. Lef t vertebral artery appears unremarkable. IMPRESSION: 1. No significant diameter reduction to account for the patient's symptoms. CTA [place] with 3-D reconstruction Contrast CTA of the [place] was performed 3-D reconstruction imaging obtained at a separate workstation. Vertebrobasilar system as well as intracranial portions of the internal carotid arteries and their ma colleen tributaries are patent. I do not see evidence for sizable aneurysm or vascular malformation. Dim inutive right A1 segment may be related to congenital hypoplasia versus atherosclerotic disease. Also slight asymmetry in the distal branches left MCA versus right MCA. Please note MRI provides greater sensitivity and specificity. Visualized brain appears grossly unremarkable. IMPRESSION: 1. Diminutive right A1 segment may be related to congenital hypoplasia versus atherosclerotic disease . Also slight asymmetry in the distal branches left MCA versus right MCA. NASCET criteria was used in interpretation of this exam?
[2021-11-21 19:18] VITALS: BP 107/73; PULSE 56; RESP 18; TEMP 97
== END 2021-11-21 19:25 | disposition home or self-care (01) ==
LOC: EC 13:57
DX: R42 Dizziness and giddiness (principal); Z86.73 Personal history of transient ischemic attack (TIA), and cerebral infarction without residual deficits
CPT/HCPCS: 36415; 93005; 80053; 84484; 85025; 85610; 85730; 70496; 70450; 70498; 99284; 96360; Q9967

== ENCOUNTER 2022-06-02 09:43 | Day surgery (SDC) | payer MEDICARE ==
[2022-05-29 11:15] VITALS: BMI 26.3
[2022-06-02 10:40] VITALS: TEMP 96.8
[2022-06-02] MEDS: LACTATED RINGERS 1,000 ML IV SCH ×2 (10:47→10:58)
[2022-06-02] MEDS ORDERED: PROPOFOL 10 MG/ML 20 ML VIAL IV ONE (11:02)
--- NOTE | 2022-06-02 11:16 | P.PCN ---
Date of Procedure: 06/02/22 Procedure(s) Performed: BRIEF HISTORY: Patient is a 72-year-old pleasant male scheduled for an elective colonoscopy as a part of screening for colon cancer. Her last coloscopy was 10 years ago. PROCEDURE PERFORMED: Colonoscopy. PREOPERATIVE DIAGNOSIS: Screening for colon cancer. IV sedation per Anesthesia. PROCEDURE: After informed consent was obtained, the patient, was brought into the endoscopy unit. IV sedation was administered by Anesthesia under continuous monitoring. Digital rectal examination was normal. Initially the Olympus CF-160 flexible video colonoscope was then inserted in the rectum, gradually advanced into the cecum without any difficulty. Careful examination was performed as the scope was gradually being withdrawn. Ileocecal valve and the appendiceal orifice were visualized and appeared normal. Prep was excellent. Mucosa of the cecum, ascending colon, transverse colon, descending colon, sigmoid colon, and rectum appeared normal. Scattered sigmoid diverticulosis. Retroflexion was performed in the rectum and no lesions were seen. The patient tolerated the procedure well. IMPRESSION: Normal-appearing colon from rectum to cecum with no evidence of colorectal neoplasia . Scattered sigmoidal diverticulosis. RECOMMENDATIONS: Findings of this examination were discussed with the patient as well as her family. He was advised to have a repeat screening colonoscopy in 10 years..
[2022-06-02 11:21] VITALS: RESP 16
[2022-06-02 11:41] VITALS: BP 105/78; PULSE 58
== END 2022-06-02 12:14 | disposition home or self-care (01) ==
LOC: ORWHC2ENDO 09:43
PROVIDERS: ATTEND Internal Medicine Gastroenterology
DX: Z12.11 Encounter for screening for malignant neoplasm of colon (principal); K57.30 Diverticulosis of large intestine without perforation or abscess without bleeding; I10 Essential (primary) hypertension; E78.5 Hyperlipidemia, unspecified; R00.0 Tachycardia, unspecified; Z87.891 Personal history of nicotine dependence; Z86.718 Personal history of other venous thrombosis and embolism; Z86.711 Personal history of pulmonary embolism; Z79.899 Other long term (current) drug therapy; Z79.01 Long term (current) use of anticoagulants
CPT/HCPCS: J2704; G0121

== ENCOUNTER → 2022-07-31 | Outpatient (CLI) | payer MEDICARE ==
[2022-07-31 11:13] LABS: African American GFR (CKD) 78.4 (60.0-200.0); Albumin 4.2 g/dL (3.8-4.9); Albumin/Globulin Ratio 1.91 (1.60-3.17); Anion Gap 8.2 mmol/L (10.00-18.00); Calcium 9.2 mg/dL (8.7-10.3); Carbon Dioxide 26.8 mmol/L (20.0-27.5); Globulin 2.2 g/dL (1.6-3.3); Non-African American GFR(CKD) 67.7 (60.0-200.0); Potassium 4.5 mmol/L (3.5-5.5); Total Bilirubin 0.4 mg/dL (0.30-1.20); Total Protein 6.4 g/dL (6.2-8.2)
== END | disposition home or self-care (01) ==
LOC: LABWHC1 07:11
PROVIDERS: ATTEND Internal Medicine Critical Care Medicine
DX: I42.0 Dilated cardiomyopathy (principal)
CPT/HCPCS: 36415; 80053; 82164; 82306

== ENCOUNTER → 2022-08-05 | Outpatient (CLI) | payer MEDICARE ==
[2022-08-05 08:01] LABS: African American GFR (CKD) >90 (>60 ml/min/1.73 sqM); Blood Urea Nitrogen 18 mg/dL (9-20); Non-African American GFR(CKD) 87 (>60 ml/min/1.73 sqM)
--- NOTE | 2022-08-05 08:37 | CT ---
EXAMINATION TYPE: CT chest wo/w con CT DLP: 857.7 mGycm, Automated exposure control for dose reduction was used. DATE OF EXAM: 08/05/2022 8:26 AM COMPARISON: Chest radiograph from 07/30/2022. CLINICAL INDICATION:Male, 72 years old with history of I42.0, Cardiomyopathy TECHNIQUE: Multiple axial images were obtained through the chest with and without IV contrast. Sagitt al and coronal reformats were created for review. Contrast used:70 mL of Isovue 300 without and with IV Contrast Oral contrast used: none. FINDINGS: LUNGS/ PLEURA: No focal consolidation, pneumothorax or pleural effusion. No only vascular congestion. No honeycombing. Minimal centrilobular emphysema changes. AIRWAY: Patent and unremarkable. HEART: Size within normal limits. Mild valve leaflet calcifications and coronary artery calcification s. MEDIASTINUM: No gross evidence of adenopathy. VASCULATURE: No aortic aneurysm. Visualized portions of the pulmonary arterial vasculature demonstra te no evidence for a filling defect to suggest pulmonary embolism. Pulmonary trunk is within normal l imits for size. Scattered atherosclerosis of the arterial vasculature. MUSCULOSKELETAL: Mild disc degeneration changes are present throughout the thoracolumbar spine. SOFT TISSUES/LYMPH NODES: Unremarkable. LOWER NECK: No significant findings. UPPER ABDOMEN: None IMPRESSION: 1. No evidence for acute process. 2. No evidence for pulmonary vascular congestion. 3. The heart is not enlarged for size. 4. Mild coronary atherosclerosis. 5. Mild emphysema.
== END | disposition home or self-care (01) ==
LOC: RADCTMAIN 07:16
PROVIDERS: ATTEND Internal Medicine Critical Care Medicine
DX: J43.2 Centrilobular emphysema (principal); I42.0 Dilated cardiomyopathy; I25.10 Atherosclerotic heart disease of native coronary artery without angina pectoris
CPT/HCPCS: 82565; 84520; 71270; 36415; Q9967

== ENCOUNTER → 2024-04-26 | Outpatient (CLI) | payer MEDICARE ==
[2024-04-26 07:54] LABS: African American GFR (CKD) >90 (>60 ml/min/1.73 sqM); Blood Urea Nitrogen 24 mg/dL (9-20); Non-African American GFR(CKD) 79 (>60 ml/min/1.73 sqM)
--- NOTE | 2024-04-26 09:57 | CT ---
EXAMINATION TYPE: CT soft tissue neck w con DATE OF EXAM: 04/26/2024 8:47 AM COMPARISON: 08/05/2022. CLINICAL INDICATION: Male, 74 years old with history of R59.0 LOCALIZED ENLARGED LYMPH NODES, enlarge d lymphnodes, fatigue x3 weeks TECHNIQUE: Standard enhanced CT of the neck. Axial sections with coronal and sagittal reformats were obtained. Contrast used:50 mL of Isovue 300 with IV Contrast, (None if empty) Oral contrast used: (None if empty) CT DLP: 2455.3 mGycm, Automated exposure control for dose reduction was used. FINDINGS: Brain: Visualized portions are grossly unremarkable. Atherosclerosis of the intracranial vasculature. Orbits: Unremarkable Sinuses: Grossly unremarkable. Spaces of the neck: Clear and symmetric. Musculoskeletal: No acute osseous pathology. Lymph nodes: Multiple nonenlarged lymph nodes are seen along both anterior chains of the neck. Vascular structures: Visualized major arteries are patent without evidence of aneurysm. Thoracic Inlet/airway: Airway is patent. The lung apices are clear. Soft tissues/Thyroid: Thyroid and remainder of the soft tissues are unremarkable. Other: Cardiac conduction leads partially visualized. IMPRESSION: No evidence for lymphadenopathy. Specifically no enlarged lymph nodes by CT criteria identified. No p alpable markers were placed for relation with area of concern. [facility], , 04/26/2024 9:55 AM
--- NOTE | 2024-04-26 11:31 | CT ---
EXAMINATION TYPE: CT ChestAbdPelvis w con DATE OF EXAM: 04/26/2024 8:47 AM COMPARISON: 08/06/2019 07/20/1823 CLINICAL INDICATION: Male, 74 years old with history of R59.0 LOCALIZED ENLARGED LYMPH NODES; PHH, en larged lymphnodes, fatigue x3 weeks Technique: CT ChestAbdPelvis w con; Multiple axial images were obtained. Two-dimensional coronal and sagittal reconstructions were obtained. Contrast used:50 mL of Isovue 300 with IV Contrast, (None if empty) Oral contrast used: without Oral Contrast CT DLP: 2455.3 mGycm, Automated exposure control for dose reduction was used. Findings: CHEST: LUNGS/ PLEURA: No focal consolidation, pneumothorax or pleural effusion. AIRWAY: Patent and unremarkable. HEART: Size within normal limits.Atherosclerosis of the arterial vasculature. Cardiac conduction lead s terminating in the right ventricle and right atrium. MEDIASTINUM: No gross evidence of adenopathy. VASCULATURE: No aortic aneurysm. MUSCULOSKELETAL: No acute osseous abnormalities. SOFT TISSUES/LYMPH NODES: Unremarkable. LOWER NECK: No significant findings. ABDOMEN: ABDOMEN LIVER: Unremarkable GALLBLADDER AND BILE DUCTS: Unremarkable. PANCREAS: Unremarkable. SPLEEN: Unremarkable. ADRENAL GLANDS: Unremarkable. KIDNEYS AND URETERS: No evidence of hydronephrosis or renal calculus. The ureters are unremarkable. Excreted IV contrast in the collecting systems from same day study. PELVIS BLADDER: Unremarkable REPRODUCTIVE: Unremarkable. ABDOMEN & PELVIS STOMACH AND BOWEL: No evidence of bowel obstruction. Scattered colonic diverticula. PERITONEUM/RETROPERITONEUM: No evidence of pneumoperitoneum or free fluid. VASCULATURE: No evidence of aortic aneurysm. MUSCULOSKELETAL: No acute osseous abnormalities. Moderate disc degeneration changes are present throu ghout the thoracolumbar spine. LYMPH NODES: No gross evidence for lymphadenopathy. SOFT TISSUE/ABDOMINAL WALL: Small fat-containing umbilical hernia. IMPRESSION: 1. No enlarged lymph nodes identified. Specifically no greater than 1.0 cm in short axis lymph nodes identified. 2. Colonic diverticula suspected 3. Fat-containing umbilical hernia. 4. Coronary artery atherosclerosis. Follow up recommendations for incidental pulmonary nodules are per [employer] or [employer]. [facility], , 04/26/2024 11:29 AM
== END | disposition home or self-care (01) ==
LOC: RADCTMAIN 07:17
PROVIDERS: ATTEND Internal Medicine
DX: R59.0 Localized enlarged lymph nodes (principal); K42.9 Umbilical hernia without obstruction or gangrene; I25.10 Atherosclerotic heart disease of native coronary artery without angina pectoris
CPT/HCPCS: 82565; 84520; 70491; 71260; 74177; 36415; Q9967